=== PATIENT | male | born 2000 | race Caucasian/White ===

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

== ENCOUNTER 2019-05-04 17:44 | Emergency (ER) | payer BC ==
[~2019-05-04] VITALS: Ht 167.6 cm; Wt 102.7 kg
[2019-05-04] MEDS ORDERED: VOLTAREN - GENE75 MG PO (18:32)
[2019-05-04 18:50] VITALS: BP 128/74
== END 2019-05-04 19:08 | disposition home or self-care (01) | DRG 563 ==
LOC: ED 17:44
DX: S93.402A Sprain of unspecified ligament of left ankle, initial encounter (principal); X50.1XXA Overexertion from prolonged static or awkward postures, initial encounter; Y93.9 Activity, unspecified; Y92.9 Unspecified place or not applicable

== ENCOUNTER 2021-05-15 17:00 | Emergency (ER) | payer BC ==
[~2021-05-15] VITALS: Ht 167.6 cm; Wt 106.8 kg
[~2021-05-15 17:00] MED LIST changes: +VOLTAREN - GENE75 MG PO
[2021-05-15 17:51] LABS: HEMATOCRIT 49.4 % (39.0-50.0); IMMATURE GRANULOCYTES 0.2 % (0.0-5.0); MEAN CELL VOLUME 86.2 fL CALC (80.0-100.0); MEAN CORPUSCULAR HGB 29.7 pG CALC (26.0-32.0); MEAN CORPUSCULAR HGB CONC 34.4 g/dL CAL (32.0-36.0); NEUT# 5.04 thou/uL (1.82-7.42); RED BLOOD COUNT 5.73 mill/uL (4.70-6.10); RED CELL DISTRI WIDTH 11.3 % (11.5-15.5)
[2021-05-15 18:01] LABS: ANION GAP 16 (6-22 (CALC)); BUN 12 mg/dL (9-20); BUN/CREATININE RATIO 14 (12-20 (CALC)); CARBON DIOXIDE 22 mmol/l (22-30); CHLORIDE 104 mmol/l (95-108); CREATININE 0.8 mg/dL (0.7-1.3); GFR > 60 ML/MIN (>=60 (CALC)); GFR FOR AFR.AMER. > 60 ML/MIN (>=60 (CALC)); POTASSIUM 4.7 mmol/l (3.5-5.1); SODIUM 138 mmol/l (137-146)
[2021-05-15 18:26] VITALS: BP 138/82
== END 2021-05-15 18:38 | disposition home or self-care (01) | DRG 103 ==
LOC: ED 17:00
PROVIDERS: Family Medicine
DX: R51.9 Headache, unspecified (principal)

== ENCOUNTER 2024-08-18 01:15 | Emergency (ER) | payer SELFPAY ==
[~2024-08-18] VITALS: Ht 167.6 cm; Wt 110.0 kg
[2024-08-18 01:15] VITALS: BP 176/117
[2024-08-18] MEDS ORDERED: ALUM & MAG HYDROX-SIMETHICONE 30 ML PO ONE (01:40)
[2024-08-18] MEDS ORDERED: FAMOTIDINE 10MG/ML 2ML SDV IV ONE (01:40)
[2024-08-18] MEDS ORDERED: LIDOCAINE VISCOUS 2% 15 ML UDC PO ONE (01:40)
[2024-08-18 02:12] LABS: BASO% 0.3 % (0-3); EOS% 5.7 % (0-8); HEMOGLOBIN 15.9 g/dl (14.0-18.0); IMMATURE GRANULOCYTES 0.2 % (0.0-5.0); LYMPH% 32.4 % (15-41); MEAN CELL VOLUME 88.6 fL CALC (80.0-100.0); MEAN CORPUSCULAR HGB 30.6 pG CALC (26.0-32.0); MEAN CORPUSCULAR HGB CONC 34.6 g/dL CAL (32.0-36.0); MONO% 5.7 % (2-13); NEUT# 5.63 thou/uL (1.82-7.42); NEUT% 55.7 % (42-76); RED BLOOD COUNT 5.19 mill/uL (4.70-6.10); RED CELL DISTRI WIDTH 11.2 % (11.5-15.5)
[2024-08-18 02:25] LABS: BILIRUBIN, TOTAL 0.7 mg/dL (0.2-1.3); CREATININE 0.9 mg/dL (0.7-1.3); POTASSIUM 4.3 mmol/l (3.5-5.1); TOTAL PROTEIN 7.4 g/dL (6.3-8.2)
[2024-08-18 02:26] LABS: ALBUMIN 4.7 g/dL (3.2-5.0)
[2024-08-18] MEDS ORDERED: PROTONIX40 MG PO (02:34)
== END 2024-08-18 02:55 | disposition home or self-care (01) | DRG 392 ==
LOC: ED 01:15
PROVIDERS: Emergency Medicine
DX: K29.70 Gastritis, unspecified, without bleeding (principal)